=== PATIENT | female | born 1930 | race Caucasian/White ===

== ENCOUNTER 2019-01-19 12:23 | Emergency (ER) | payer MEDICARE, BC ==
[2019-01-19 13:31] LABS: BASOPHILS % (AUTO) 1 % (0-3); EOSINOPHILS % (AUTO) 0 % (0-9); HEMATOCRIT 39 % (35-47); LYMPHOCYTES % (AUTO) 14.6 % (10-50); MEAN CORPUSCULAR HEMOGLOBIN 32.3 pg (27.0-32.0); MEAN CORPUSCULAR HGB CONC 33.4 gm/dl (32.0-36.0); MEAN CORPUSCULAR VOLUME 97 fL (81-99); MONOCYTES % (AUTO) 7.2 % (0-12); NEUTROPHILS % (AUTO) 77.3 % (37-80)
[2019-01-19 13:45] LABS: ALBUMIN 3.7 gm/dl (3.4-5.0); ALKALINE PHOSPHATASE 34 IU/L (46-116); ALT 18 IU/L (14-63); AST 20 IU/L (15-37); BILIRUBIN,TOTAL 1.2 mg/dl (0.2-1.0); BLOOD UREA NITROGEN 15 mg/dl (7-18); CALCIUM 9.1 mg/dl (8.5-10.1); CARBON DIOXIDE 26.5 mEq/L (21-32); CHLORIDE 101 mMol/L (98-107); CREATININE 0.68 mg/dl (0.60-1.00); GLUCOSE 110 mg/dl (74-106); POTASSIUM 4.6 mMol/L (3.5-5.1); SODIUM 138 mMol/L (136-145); TOTAL PROTEIN 6.7 gm/dl (6.4-8.2); TROP I < 0.017 ng/ml (0.000-0.056)
[2019-01-19 14:03] VITALS: RESP 16; TEMP 97.8
[2019-01-19 15:38] VITALS: BP 155/93; PULSE 62; O2SAT 99
== END 2019-01-19 15:56 | disposition home or self-care (01) | DRG 69 ==
LOC: ED 12:23
DX: G45.9 Transient cerebral ischemic attack, unspecified (principal); R29.700 NIHSS score 0; I10 Essential (primary) hypertension; R53.1 Weakness
CPT/HCPCS: 36415; 70450; 80053; 83880; 84484; 85025; 93005; 99283; 99284